=== PATIENT | female | born 1995 | race Caucasian/White ===

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

== ENCOUNTER → 2017-01-25 | Outpatient (REF) | payer OTHER | LOC: M LABDRAW1 13:40 | PROVIDERS: ATTEND Family Medicine | DX: E55.9 Vitamin D deficiency, unspecified (principal) ==

== ENCOUNTER → 2017-09-22 | Outpatient (CLI) | payer OTHER ==
[2017-09-24 10:40] LABS: TOTAL 25(OH) VITAMIN D 86.2 NG/ML (30.0-100.0)
== END ==
LOC: M LAB 12:10
DX: E55.9 Vitamin D deficiency, unspecified (principal)
CPT/HCPCS: 82306

== ENCOUNTER → 2018-11-11 | Outpatient (REF) | payer OTHER | LOC: M LABDRAW1 15:47 | PROVIDERS: ATTEND Family Medicine | DX: E55.9 Vitamin D deficiency, unspecified (principal) ==

== ENCOUNTER → 2020-09-17 | Outpatient (CLI) | payer OTHER ==
--- NOTE | 2020-09-17 08:22 | ECGEPIP ---
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
[2020-09-17 09:21] LABS: HEMATOCRIT 46.5 % (36.0-47.0); HEMOGLOBIN 15.1 g/dl (12.0-15.5); MEAN CORPUSCULAR HEMOGLOBIN 28.9 pg (27.0-33.0); MEAN CORPUSCULAR HGB CONC 32.5 g/dl (32.0-36.5); MEAN CORPUSCULAR VOLUME 88.9 fl (80.0-96.0); PLATELET COUNT, AUTOMATED 211 10^3/uL (150-450); RED BLOOD COUNT 5.23 10^6/uL (4.00-5.40); WHITE BLOOD COUNT 7.3 10^3/uL (4.0-10.0)
[2020-09-17 09:52] LABS: BLOOD UREA NITROGEN 14 MG/DL (7-18); CALCIUM LEVEL 9.1 MG/DL (8.5-10.1); CARBON DIOXIDE LEVEL 33 MEQ/L (21-32); CHLORIDE LEVEL 105 MEQ/L (98-107); CREATININE FOR GFR 0.94 MG/DL (0.55-1.30); GLOMERULAR FILTRATION RATE > 60.0 (>60); GLUCOSE, FASTING 81 MG/DL (70-100); SODIUM LEVEL 140 MEQ/L (136-145)
== END ==
LOC: M LAB 07:56
PROVIDERS: ATTEND Plastic Surgery Surgery of the Hand
DX: Z01.818 Encounter for other preprocedural examination (principal); N62 Hypertrophy of breast

== ENCOUNTER → 2020-09-30 | Outpatient (CLI) | payer OTHER ==
[~2020-09-30] MED LIST: D31000TA2 PO; SERT50TA29 PO
== END ==
LOC: M LABSMTC 11:05
PROVIDERS: ATTEND Anesthesiology
DX: Z01.812 Encounter for preprocedural laboratory examination (principal); Z20.822 Contact with and (suspected) exposure to COVID-19

== ENCOUNTER 2020-10-05 06:26 | Observation (INO) | payer OTHER ==
[~2020-10-05] VITALS: Ht 167.6 cm; Wt 65.0 kg
[2020-10-05] VITALS (7 sets, daily range): BP systolic 107–122; BP diastolic 61–77
[~2020-10-05 06:26] MED LIST changes: +LR 1,000 ML IV ONE; +ceFAZolin SOD 1 GM in D5W MINI-BAG PLUS 50 ML IV ONE
[2020-10-05] MEDS ORDERED: BUPIVACAINE LIPOSOME/PF 1.3% 20ML VIAL (13.3MG/ML)(EXPAREL)(C9290 PER1MG) As Ordered ONE (07:12)
[2020-10-05] MEDS ORDERED: BACITRACIN PWD 50,000 UNITS VIAL As Ordered ONE (07:12)
[2020-10-05] MEDS ORDERED: SCOPOLAMINE 1MG TRANSDERMAL PATCH TOP ONE ×2 (07:15→12:40)
[2020-10-05] MEDS ORDERED: propofoL 200 MG/20 ML VIAL As Ordered ONE (07:23)
[2020-10-05] MEDS ORDERED: ROCURONIUM BROMIDE 50 MG/5 ML VIAL As Ordered ONE ×2 (07:23→09:09)
[2020-10-05] MEDS ORDERED: MIDAZOLAM INJ 2MG/2ML VIAL (J2250 PER 1MG) As Ordered ONE (07:23)
[2020-10-05] MEDS ORDERED: fentaNYL 250 MCG/5 ML INJECTION (J3010) As Ordered ONE (07:23)
[2020-10-05] MEDS ORDERED: LIDOCAINE 2% 100MG/5ML SDV (FOR ANES.) As Ordered ONE (07:23)
[2020-10-05] MEDS ORDERED: dexameTHASONE 4 MG/ML 1ML VIAL (J1100 PER 1MG) As Ordered ONE (07:23)
[2020-10-05] MEDS ORDERED: LACRILUBE (AKWA TEARS) OPHTH OINT 3.5 GM As Ordered ONE (08:43)
[2020-10-05] MEDS ORDERED: ePHEDrine SULFATE 25 MG/5 ML(5MG/ML) SYRINGE As Ordered ONE (08:43)
[2020-10-05] MEDS ORDERED: PHENYLephrine 500MCG 5ML (100MCG/ML) SYRINGE As Ordered ONE (08:43)
[2020-10-05] MEDS ORDERED: ACETAMINOPHEN 1000MG 100ML IV BTL (OFIRMEV) (J0131 PER 10MG) As Ordered ONE (09:16)
[2020-10-05] MEDS ORDERED: SUGAMMADEX SODIUM 500 MG/5 ML VIAL (BRIDION) As Ordered ONE (09:16)
[2020-10-05] MEDS ORDERED: HYDROmorphone HCL 2 MG/ML 1ML VIAL (J1170) As Ordered ONE (09:16)
[2020-10-05] MEDS ORDERED: ONDANSETRON 4MG/2ML VIAL As Ordered ONE (11:22)
--- NOTE | 2020-10-05 11:54 | POST-OPPD ---
Postoperative Procedure Note Date Of Procedure: Oct 05, 2020 PREOPERATIVE DIAGNOSIS: Bilateral breast hypertrophy POSTOPERATIVE DIAGNOSIS: same FINDINGS: large breast PROCEDURE: Bilateral breast reduction. SURGEON: Dr Bartlett ANESTHESIA: General SPECIMENS: Right breast 529 gm, Left breast 428 gm ESTIMATED BLOOD LOSS: 150 cc REPLACED: none DRAINS: 10 mm EVELYN x 2 COMPLICATIONS: none POSTOPERATIVE CONDITION: stable JOSE BARTLETT DO Oct 05, 2020 11:54
--- NOTE | 2020-10-05 11:56 | ROOPDOC ---
[facility] Report Of Operation Report of Operation DATE OF PROCEDURE: 10/05/20 PREOPERATIVE DIAGNOSIS: Bilateral breast hypertrophy POSTOPERATIVE DIAGNOSIS: same FINDINGS: large breast PROCEDURE: Bilateral breast reduction. SURGEON: Dr Bartlett ANESTHESIA: General SPECIMENS: Right breast 529 gm, Left breast 428 gm ESTIMATED BLOOD LOSS: 150 cc REPLACED: none DRAINS: 10 mm EVELYN x 2 COMPLICATIONS: none POSTOPERATIVE CONDITION: stable DESCRIPTION OF PROCEDURE: This is a 25-year-old female who upper back and neck pain worsened by large breasts. She wears 30 J bra. She is scheduled for bilat eral breast reduction. Risks, benefits, and alternatives were discussed with the patient in detail, and she is ready to proceed. The day of surgery, she was marked in the upright position and informed consent was obtained. She measured 28 cm from sternal notch to nipple on both sides, IMF at 21 cm bilaterally. She was brought into the operating room and placed in the supine position. Preoperative antibiotics were given. Sequential pneumatic stocking were placed on the lower calves. General anesthesia was induced. She was prepped and draped in the usual sterile fashion. We started our procedure on the right side. Her nipple areolar complex was outlined 42 mm in diameter, and the patient was marked according superior medial pedicle. We started our incision by scoring the nipple areolar complex area, and then dissection was continued until the inferior lateral portion of the breast was resected. Hemostasis was obtained using electrocautery. The pedicle was de- epithelialized using Alva scissors, good perfusion to the nipple at all times. Wound was irrigated with Bacitracin solution. We used Exparel 6 cc for local anesthesia to infiltrate in the Pectoralis muscle as well as the breast tissue. Than pedicle was turned superior to its new location at 21 cm from sternal notch. The mound was re-created using conforming 0 Vicryl sutures. Pillars were closed with interrupted 3-0 Monocryl sutures. The vertical limb was 6 cm. Excess tissue inferiorly was measured and resected, creating the horizontal scar. Nipple area complex was brought into view through the new opening and sutured in place with 3-0 and 4-0 Monocryl sutures and a 5-0 plain. A 10 mm Camilo-Alonzo drain was placed through the lateral portion of the horizontal incision. Then we turned our attention to the left side. Mirror procedure was carried out. Again, resection was done according to superior-medial pedicle using electroca utery and PEEK cautery. Hemostasis was obtained. The pedicle was in good viable condition. Exparel was infiltrated through the pectoralis muscle and the breast tissue 6 cc. Than pedicle was turned superior to its new location at 21 cm from sternal notch. The mound was re-created using conforming 0 Vicryl sutures. Pillars were closed with interrupted 3-0 Monocryl sutures. The vertical limb was 6 cm. Excess tissue inferiorly was measured and resected, creating the horizontal scar. Nipple area complex was brought into view through the new opening and sutured in place with 3-0 and 4-0 Monocryl sutures and a 5-0 plain gut suture in interrupted fashion. A 10 mm Camilo-Alonzo drain was placed through the lateral portion of the horizontal incision. Remaining Exparel injected in the horizontal incision. Total Exparel use 20 cc. Resected tissue sent to pathology in two specimens right and left breast tissue. Right breast 529 grams, left breast 428 grams. Dressings were applied to vertical and horizontal incision: Prineo. Nipples areolar complex: Xeroform and a bulky dressing with a surgical bra. Patient was extubated in the operating room without difficulty and was transferred to the recovery room in stable condition. JOSE BARTLETT DO Oct 05, 2020 11:56
[2020-10-05] MEDS ORDERED: PERCOCET 5MG/325MG TAB PO PRN (12:00)
[2020-10-05] MEDS ORDERED: ONDANSETRON 4MG/2ML VIAL IV PRN ×2 (12:00→12:25)
[2020-10-05] MEDS ORDERED: KETOROLAC TROMETHAMINE 10 MG TAB PO PRN (12:00)
[2020-10-05] MEDS: LR 1,000 ML IV SCH ×2 (12:10→20:35)
[2020-10-05] MEDS ORDERED: ESMOLOL INJ 100MG/10ML VIAL As Ordered ONE (12:17)
[2020-10-05] MEDS ORDERED: MEPERIDINE INJ 25 MG/ML VIAL (J2175) IV PRN (12:25)
[2020-10-05] MEDS ORDERED: LR 1,000 ML IV SCH (12:25)
[2020-10-05] MEDS ORDERED: fentaNYL 100 MCG/2 ML INJECTION (J3010) IV PRN (12:25)
[2020-10-05] MEDS ORDERED: oxyCODONE 5MG TAB PO PRN (12:25)
[2020-10-05] MEDS ORDERED: METOCLOPRAMIDE INJ 10MG/2ML VIAL (J2765 PER 1) IV PRN (12:25)
[2020-10-05] MEDS: ceFAZolin SOD 1 GM in D5W MINI-BAG PLUS 50 ML IV SCH (17:22)
[2020-10-05] MEDS: ACETAMINOPHEN TAB 650MG DOSE (2X325MG) PO PRN (19:55)
[2020-10-06] MEDS: ceFAZolin SOD 1 GM in D5W MINI-BAG PLUS 50 ML IV SCH ×2 (00:47→07:59)
[2020-10-06 02:00] VITALS: BP 117/67
[2020-10-06] MEDS: ACETAMINOPHEN TAB 650MG DOSE (2X325MG) PO PRN (02:47)
[2020-10-06 06:00] VITALS: BP 115/65
--- NOTE | 2020-10-06 09:54 | IPNPDOC ---
Subjective General Date Seen: Oct 06, 2020 Subject Chief Complaint/History The patient is a 25-year-old female admitted with a reason for visit of Bilateral Breast Hypertrophy. S/p bilateral breast reduction POD 1. Ambulating, tolerating diet. Pain controlled. Current Medications Current Medications Current Medications Medications (Trade) Dose Ordered Sig/Robles Route PRN Reason Start Time Stop Time Status Last Admin Dose Admin Acetaminophen (Tylenol Tab) 650 mg Q6H PRN PO MILD PAIN (PS 1-4) 10/05/20 12:00 10/06/20 02:47 Cefazolin Sodium 1 gm/Dextrose 50 ml @ 100 mls/hr Q8H IV 10/05/20 16:00 10/06/20 07:59 Fentanyl Citrate (Sublimaze) 25 mcg Q5MP PRN IV PAIN LEVEL 5-10 10/05/20 12:25 10/05/20 13:25 DC Ketorolac Tromethamine (ToRADol) 10 mg Q6HP PRN PO MODERATE PAIN (PS 5-7) 10/05/20 12:00 10/10/20 11:59 Lactated Ringer's 1,000 ml @ 75 mls/hr [id number] IV 10/05/20 11:56 10/05/20 20:35 Lactated Ringer's 1,000 ml @ 100 mls/hr Q10H IV 10/05/20 12:25 10/05/20 13:25 DC Meperidine HCl (Demerol) 12.5 mg Q5MP PRN IV SHIVERING 10/05/20 12:25 10/05/20 13:25 DC Metoclopramide HCl (REGLAN INJection) 10 mg Q6HP PRN IV NAUSEA OR VOMITING 10/05/20 12:25 10/05/20 13:25 DC Ondansetron HCl (ZOFRAN INJection) 4 mg Q4H PRN IV NAUSEA OR VOMITING 10/05/20 12:00 Ondansetron HCl (ZOFRAN INJection) 4 mg Q4HP PRN IV NAUSEA OR VOMITING 10/05/20 12:25 10/05/20 13:25 DC Oxycodone HCl (Roxicodone, Oxyir) 5 mg ASDIRECTED PRN PO PAIN LEVEL 1-4 10/05/20 12:25 10/05/20 13:25 DC Oxycodone/ Acetaminophen (Percocet 5mg/ 325mg Tablet) 1 tab Q4HP PRN PO MODERATE PAIN (PS 5-7) 10/05/20 12:00 Allergies Coded Allergies: No Known Allergies (Unverified , 09/28/20) Objective Physical Examination Examination GENERAL APPEARANCE:Patient seen, laying in bed, awake, alert, and oriented. C omfortable, in no acute distress. SKIN: Warm and moist. BREAST: Right and left soft, non-tender incisions intact. EVELYN drains: 30/10cc/24 hr. NAC: Viable, warm, symmetrical, mild post-op ecchymosis, no expanding hematoma. HEENT: Normocephalic, atraumatic. [place] palpebral conjunctiva, anicteric sclerae. Lips and mucosa appear moist. NECK: Supple, no thyromegaly. No obvious jugular venous distention. LUNGS: Clear to auscultation bilaterally. No wheezing appreciated. HEART: No chest wall abnormalities. Regular rate and rhythm with no murmurs appreciated. ABDOMEN: Abdomen is soft, non-tender, non-distended. EXTREMITIES: No edema identified. No calf tenderness. Vital Signs Vital Signs Date Time Temp Pulse Resp B/P (MAP) Pulse Ox O2 Delivery O2 Flow Rate FiO2 10/06/20 06:00 98.5 92 18 115/65 (82) 96 Room Air 10/05/20 12:10 2 I&Os I&O- Last 24 Hours up to 6 AM 10/06/20 06:00 Intake Total 5455 ml Output Total 225 ml Balance 5230 ml Impression S/p Breast reduction POD 1. Stable for discharge. Continue with support bra. Monitor drains and document daily output. No heavy lifting. Pain control. F/up plastic surgery. Plan / VTE VTE Prophylaxis Ordered?: Yes JOSE BARTLETT DO Oct 06, 2020 09:54
[2020-10-06] MEDS ORDERED: PERCOCET PO (09:59)
[2020-10-06 10:00] VITALS: BP 110/64
== END 2020-10-06 12:50 | disposition home or self-care (01) ==
LOC: M SDC 06:26 → M MS5PR 06:27 → M SDC 13:45 → M MS5PR 13:45 → M SDC 10-06 12:50 → M MS5PR 10-06 12:50
PROVIDERS: ADMIT Plastic Surgery Surgery of the Hand; ATTEND Plastic Surgery Surgery of the Hand
DX: N62 Hypertrophy of breast (principal); F41.9 Anxiety disorder, unspecified; F32.9 Major depressive disorder, single episode, unspecified; Z79.899 Other long term (current) drug therapy
CPT/HCPCS: 19318; 81025; 88305; 96361; 96365; 96366; C9290; J0131; J0690; J1100; J1170; J2250; J2370; J2405; J3010